=== PATIENT | female | born 1960 | race Caucasian/White ===

== ENCOUNTER 2021-12-15 08:32 | Day surgery (SDC) | payer BC, SELFPAY ==
[2021-12-08 20:19] VITALS: BMI 31.3
--- NOTE | 2021-12-14 10:27 | HO.ANESPROP2 ---
HPI - Anesthesia Eval Consult details Narrative: 61yo F for Upper Endoscopy and Colonoscopy [facility] [place] Past Medical History Medical History (Updated 12/08/21 @ 20:08 by Xin Luque, RN) Anxiety Arthritis Cataract COVID-19 GERD (gastroesophageal reflux disease) Glaucoma Hyperlipidemia Hypertension OCD (obsessive compulsive disorder) Surgical History Surgical History (Updated 12/09/21 @ 08:37 by Adalgisa Macias RN) History of appendectomy History of colonoscopy History of esophagogastroduodenoscopy (EGD) History of excision of mass History of eye surgery History of left inguinal hernia repair Hx of foot surgery Social History Social History Patient Tobacco Use Status: Never used Tobacco Use of substances other than those prescribed or required for medical reasons: No Are you DNR?: No Advance Directives: No Advance Directives Information Provided: No Advance Directives on File: No Recently lost weight without trying: No Nutrition Risks: No Nutritional Risk Patient : No Meds Allergies Allergy/AdvReac Type Severity Reaction Status Date / Time No Known Allergies Allergy Verified 12/08/21 20:07 Home Medications Medication Instructions Recorded Confirmed Last Taken Type albuterol sulfate 90 mcg/actuation 1 inh inhalation DAILY PRN 12/08/21 12/08/21 Unknown History aerosol inhaler Shortness Of Breath Or Wheezing atorvastatin 20 mg tablet 1 tab PO DAILY 12/08/21 12/08/21 Unknown History brimonidine 0.2 % eye drops 1 drp BID 12/08/21 12/08/21 Unknown History buspirone 15 mg tablet 1 tab PO TID 12/08/21 12/08/21 Unknown History calcium carb 300 mg-D3 800 1 tab PO DAILY 12/08/21 12/08/21 Unknown History unit-mag ox 25 mg-type copy examiner 0.5 mg-caitlin-Zn tablet (Caltrate + D3 Plus Minerals) carboxymethylcellulose sodium 1 % 1 drp ophthalmic (eye) QID 12/08/21 12/08/21 Unknown History eye liquid gel drops escitalopram oxalate 20 mg tablet 1 tab PO DAILY 12/08/21 12/08/21 Unknown History latanoprost 0.005 % eye drops, 1 drp ophthalmic (eye) QPM 12/08/21 12/08/21 Unknown History emulsion metoprolol succinate 50 mg 1 tab PO DAILY 12/08/21 12/08/21 Unknown History tablet,extended release 24 hr multivitamin 1 tab PO DAILY 12/08/21 12/08/21 Unknown History netarsudil 0.02 % eye drops 1 drp ophthalmic (eye) QPM 12/08/21 12/08/21 Unknown History (Rhopressa) omeprazole 20 mg capsule,delayed 20 mg PO DAILY 12/08/21 12/08/21 Unknown History release psyllium husk 0.4 gram capsule 0.4 g PO DAILY 12/08/21 12/08/21 Unknown History (Metamucil) timolol maleate 0.5 % eye drops 1 drp ophthalmic (eye) DAILY 12/08/21 12/08/21 Unknown History Exam Exam Date and Time: December 14, 2021 1027 Height,Weight and Vital Signs: Height 4 ft 10 in Weight 68.039 kg Assessment and Plan Assessment Anesthesia Assessment: Chart Reviewed
[2021-12-15 08:49] VITALS: BP 146/89; PULSE 65; RESP 19; TEMP 36.1; O2SAT 98
[2021-12-15] MEDS: Lactated Ringers 1,000 ML 100 ML IVCONT (09:06)
--- NOTE | 2021-12-15 10:10 | P.CONAN_ITS ---
[facility] Past Medical History Medical History (Updated 12/08/21 @ 20:08 by Xin Luque RN) Anxiety Arthritis Cataract COVID-19 GERD (gastroesophageal reflux disease) Glaucoma Hyperlipidemia Hypertension OCD (obsessive compulsive disorder) Family History Family history of problems with anesthesia: No Surgical History Surgical History (Updated 12/09/21 @ 08:37 by Adalgisa Macias RN) History of appendectomy History of colonoscopy History of esophagogastroduodenoscopy (EGD) History of excision of mass History of eye surgery History of left inguinal hernia repair Hx of foot surgery History of Problems with Anesthesia: No Social History Social History Patient Tobacco Use Status: Never used Tobacco Use of substances other than those prescribed or required for medical reasons: No Are you DNR?: No Advance Directives: No Advance Directives Information Provided: No Advance Directives on File: No Recently lost weight without trying: No Nutrition Risks: No Nutritional Risk Patient : No Meds Allergies Allergy/AdvReac Type Severity Reaction Status Date / Time No Known Allergies Allergy Verified 12/08/21 20:07 Active Medications: Current Medications Lactated Ringer's (Lr) 1,000 mls @ 100 mls/hr IVCONT .Q10H SUSY Last Admin: 12/15/21 09:06 Dose: 100 mls/hr Ondansetron HCl (Ondansetron Hcl 4 Mg/2 Ml Vial) 4 mg IVPUSH ONCE PRN PRN Reason: Nausea and Vomiting Home Medications Medication Instructions Recorded Confirmed Last Taken Type albuterol sulfate 90 mcg/actuation 1 inh inhalation DAILY PRN 12/08/21 12/08/21 Unknown History aerosol inhaler Shortness Of Breath Or Wheezing atorvastatin 20 mg tablet 1 tab PO DAILY 12/08/21 12/08/21 Unknown History brimonidine 0.2 % eye drops 1 drp BID 12/08/21 12/08/21 Unknown History buspirone 15 mg tablet 1 tab PO TID 12/08/21 12/08/21 12/15/21 History calcium carb 300 mg-D3 800 1 tab PO DAILY 12/08/21 12/08/21 Unknown History unit-mag ox 25 mg-[employer] aircrewman 0.5 mg-caitlin-Zn tablet (Caltrate + D3 Plus Minerals) carboxymethylcellulose sodium 1 % 1 drp ophthalmic (eye) QID 12/08/21 12/08/21 Unknown History eye liquid gel drops escitalopram oxalate 20 mg tablet 1 tab PO DAILY 12/08/21 12/08/21 Unknown History latanoprost 0.005 % eye drops, 1 drp ophthalmic (eye) QPM 12/08/21 12/08/21 Unknown History emulsion metoprolol succinate 50 mg 1 tab PO DAILY 12/08/21 12/08/21 12/15/21 History tablet,extended release 24 hr multivitamin 1 tab PO DAILY 12/08/21 12/08/21 Unknown History netarsudil 0.02 % eye drops 1 drp ophthalmic (eye) QPM 12/08/21 12/08/21 Unknown History (Rhopressa) omeprazole 20 mg capsule,delayed 20 mg PO DAILY 12/08/21 12/08/21 12/15/21 History release psyllium husk 0.4 gram capsule 0.4 g PO DAILY 12/08/21 12/08/21 Unknown History (Metamucil) timolol maleate 0.5 % eye drops 1 drp ophthalmic (eye) DAILY 12/08/21 12/08/21 Unknown History Exam Exam Date and Time: December 15, 2021 1010 Height,Weight and Vital Signs: Height 4 ft 10 in Weight 68.039 kg Last Vital Signs Temp 97 F 12/15/21 08:49 Pulse 65 12/15/21 08:49 Resp 19 12/15/21 08:49 BP 146/89 H 12/15/21 08:49 Pulse Ox 98 12/15/21 08:49 O2 Del Method 12/15/21 08:49 Airway Mallampati Class: I TM Dist: >3cm Neck ROM: Full Loose/Missing/Broken Teeth: No Heart: rrr Lungs: clear Assessment and Plan Final Anesthetic Review Family History of Problems with Anesthesia: No History of Problems with Anesthesia: No NPO: Yes ASA Class: II Final Preanesthetic Review: No Changes in Pt Med Stat, Meds/Allgs Chart Reviewed, Consent Obtained/Reviewed and Anes Risks/Benef Reviewed Patient Risk: Low Procedure Risk: Low Anesthetic Plan Anesthetic Plan: MAC: Disposition: Standard PACU
--- NOTE | 2021-12-15 10:14 | MHC.SHP ---
Pre-Procedural Eval Section A Date of Service: 12/15/21 The patient is an INPATIENT: No Changes since office visit: No Cold of Flu in the past 2 weeks, No New Medical Problems, No Changes in Medication and No Patient answered all questions The History & Physical has been completed within 30 days and I have reviewed it.: Yes Section B Chief Complaint: reflux,bleeding Allergies: Allergies Allergy/AdvReac Type Severity Reaction Status Date / Time No Known Allergies Allergy Verified 12/08/21 20:07 Plan I have reviewed the history and physical and performed a pertinent physical examination on my patient. No changes have occurred unless specified.
--- NOTE | 2021-12-15 10:53 | PM.OP ---
Brief Operative Note Date of Service: 12/15/21 Pre-op diagnosis: gerd, change in bowels, rectal bleeding Post-op diagnosis: same Procedure: egd colonoscopy Surgeon: Chris Elena Anesthesia: MAC Was an Taker Off Braker Machine used for this Procedure?: No Estimated blood loss (mL): 2 Pathology: other (see req) Condition: stable Disposition: PACU
[2021-12-15 10:56] VITALS: BP 124/83; PULSE 63; RESP 22; TEMP 36.6; O2SAT 96
[2021-12-15 11:11] VITALS: BP 153/76; PULSE 60; RESP 18; TEMP 36.6; O2SAT 99
--- NOTE | 2021-12-16 00:06 | OP_ITS ---
SURGEON: Chris Elena MD INDICATIONS: Gastroesophageal reflux disease, rectal bleeding, and change in bowel habits. PREOPERATIVE DIAGNOSIS: POSTOPERATIVE DIAGNOSIS: PROCEDURE PERFORMED: Upper endoscopy with biopsy, colonoscopy to the terminal ileum with biopsy. ESTIMATED BLOOD LOSS: COMPLICATIONS: ANESTHESIA: ASSISTANTS: SPECIMENS: MEDICATIONS: Monitored anesthesia care. DESCRIPTION OF PROCEDURE: History and physical performed. The risks and benefits of the procedure were explained to the patient. Informed consent was obtained. The patient was placed in the left lateral decubitus position. The Olympus video gastroscope was introduced into the esophagus, stomach, and duodenum. Examination was performed and the scope was removed. She was repositioned for colonoscopy. A digital rectal exam was performed and was found to be normal. The Olympus pediatric videocolonoscope was introduced into the rectum and advanced to the cecum without difficulty. The cecum was identified by transillumination, palpation, and identification of ileocecal valve. Examination was performed. The scope was removed. She tolerated both procedures well, was returned to recovery area in stable condition. FINDINGS: Upper endoscopy: Esophagus: The esophagus was normal. There was a slight Schatzki ring at the EG junction and the small sliding hiatal hernia. There was no esophagitis. Biopsies were obtained from the EG junction. Stomach: The stomach showed no evidence of masses or ulcers. Antral biopsies were obtained to rule out H pylori. Duodenum: The bulb and second portion were normal. Colonoscopy: The terminal ileum was examined and appeared normal. This was biopsied. The visualized colonic mucosa was normal without evidence of masses, ulcers, or obvious colitis. Biopsies were obtained from the sigmoid. Retroflexed examination showed moderately large internal hemorrhoids. IMPRESSION: 1. Gastroesophageal reflux disease. 2. Normal colonoscopy. RECOMMENDATIONS: Follow up biopsy results. Screening colonoscopy in 10 years. MD ESTEPHANIA Chatterjee/[place] / [id number] [email or web address]
== END 2021-12-15 11:40 | disposition home or self-care (01) ==
PROVIDERS: PCP Internal Medicine; Visit Provider Internal Medicine Gastroenterology
PROC: (CPT 45380; principal; 2021-12-15 12:40)
DX: K62.5 Hemorrhage of anus and rectum (principal); R19.4 Change in bowel habit; K64.8 Other hemorrhoids; K21.9 Gastro-esophageal reflux disease without esophagitis; K22.2 Esophageal obstruction; K44.9 Diaphragmatic hernia without obstruction or gangrene; I10 Essential (primary) hypertension; E78.5 Hyperlipidemia, unspecified; F41.1 Generalized anxiety disorder; F42.9 Obsessive-compulsive disorder, unspecified; Z79.899 Other long term (current) drug therapy
CPT/HCPCS: 45380; 43239; 88305; 88342